=== PATIENT | female | born 1940 | race Caucasian/White ===

== ENCOUNTER → 2016-12-29 | Outpatient (CLI) | payer MEDICARE, BC ==
[~2016-12-29] MED LIST: ANTIVERT/2525 MG PO; DILTIAZEM CD120 MG PO; FAMVIR500 MG PO; IBUPROFEN600 MG PO; LOVASTATIN20 MG PO; OMEPRAZOLE20 MG PO
== END ==
LOC: LAB 10:52
DX: H47.012 Ischemic optic neuropathy, left eye (principal)

== ENCOUNTER → 2017-01-26 | Outpatient (CLI) | payer MEDICARE, BC | END | disposition home or self-care (01) | LOC: CT 09:45 | PROVIDERS: Radiology Diagnostic Radiology | DX: H46.9 Unspecified optic neuritis (principal); H54.7 Unspecified visual loss ==

== ENCOUNTER → 2017-01-28 | Outpatient (CLI) | payer MEDICARE, BC | END | disposition home or self-care (01) | LOC: CARD 01:40 | DX: I65.23 Occlusion and stenosis of bilateral carotid arteries (principal); Z79.899 Other long term (current) drug therapy ==

== ENCOUNTER → 2020-03-06 | Outpatient (CLI) | payer MEDICARE, BC | END | disposition home or self-care (01) | LOC: US 09:56 | PROVIDERS: ATTEND Internal Medicine | DX: I65.23 Occlusion and stenosis of bilateral carotid arteries (principal); I67.89 Other cerebrovascular disease; G31.1 Senile degeneration of brain, not elsewhere classified ==

== ENCOUNTER → 2020-03-13 | Outpatient (CLI) | payer MEDICARE, BC | END | disposition home or self-care (01) | LOC: LAB 08:14 | PROVIDERS: ATTEND Internal Medicine | DX: E11.9 Type 2 diabetes mellitus without complications (principal) ==

== ENCOUNTER → 2020-03-13 | Outpatient (CLI) | payer MEDICARE, BC | END | disposition home or self-care (01) | LOC: CT 08:29 | PROVIDERS: ATTEND Internal Medicine | DX: I65.21 Occlusion and stenosis of right carotid artery (principal) ==

== ENCOUNTER → 2023-01-20 | Outpatient (CLI) | payer MEDICARE, BC | END | disposition home or self-care (01) | LOC: CARD 09:56 | PROVIDERS: ATTEND Internal Medicine | DX: R06.02 Shortness of breath (principal) ==